=== PATIENT | female | born 1970 | race Caucasian/White ===

== ENCOUNTER 2018-01-14 08:31 | Emergency (ER) | payer OTHER ==
[~2018-01-14] VITALS: Ht 160 cm; Wt 90.0 kg
[~2018-01-14 08:31] MED LIST: ADVAIR DISK1 IN; ADVAIR DISK1 INH; ADVAIR DISK1 PO; ALAVERT1 TAB PO; ALLEGRA-D 1212 HOUR PO; AMOXICILLIN250 M1 PO; AMOXICILLIN875 MG OR; ATROVENT I0.5 MG/VIA IN; AUGMENTIN500TAB PO; AUGMENTIN875TAB OR; AUGMENTIN875TAB PO; AZITHROMYCIN500 MG PO; BENTYL10 MG PO; CALCIUM75 MG PO; CALTRAT1 PO; CIPROFLOXACN500 MG PO; CLARITIN10 M2 PO; CORTISPORIN OP7.5 ML OP; DEPO-MEDROL80 MG/ML IM; DUONEB IN; ESTROVE1 PO; FLONASE NASAL50 MCG; LORATADINE10 M1 PO; LORTAB 5 OR; LOTRISONE EX; LOTRISONE TOP; MEDDOSEPAK PO; NAPROSYN500 MG PO; NASONEX50 MCG/AC; NASONEX50 MCG/AC NAS; NITROFUR MAC100 MG PO; PERCOCET 5/325M1 TAB PO; PRILOSEC20 MG/CAP PO; PROAIR HFA IN; PROVENTIL IN; PROVENTIL0.083 % IN; PYRIDIUM200 MG PO; RANITIDINE150 MG PR; SINGLAIR 4 MG TA4 MG PO; SINGULAIR 10 MG10 MG PO; VIVELLE-DOT0.05 MG TD; WAL-FEX D 1212 HOUR PO; ZOFRAN ODT8 MG SL; ZPAK PO; ZYRTEC-D AL1 OR; ZYRTEC-D ALG OR
[2018-01-14] MEDS ORDERED: BREO ELLIPTA1 INH PO (08:41)
[2018-01-14 09:31] VITALS: BP 134/98
== END 2018-01-14 09:38 | disposition home or self-care (01) | DRG 563 ==
LOC: ED 08:31
DX: S83.411A Sprain of medial collateral ligament of right knee, initial encounter (principal); J45.909 Unspecified asthma, uncomplicated; X50.1XXA Overexertion from prolonged static or awkward postures, initial encounter; Y93.F9 Activity, other caregiving; Y92.230 Patient room in hospital as the place of occurrence of the external cause; Y99.0 Civilian activity done for income or pay

== ENCOUNTER → 2019-02-05 | Outpatient (REF) ==
[~2019-02-05] MED LIST changes: +BREO ELLIPTA1 INH PO
[2019-02-05 10:29] LABS: CHOLESTEROL HDL RATIO 5.4 (<4.4 (CALC))
== END | disposition home or self-care (01) | DRG 951 ==
LOC: LAB 09:09
PROVIDERS: ATTEND Family Medicine
DX: Z02.6 Encounter for examination for insurance purposes (principal)

== ENCOUNTER 2020-12-19 07:34 | Day surgery (SDC) | payer OTHER ==
[~2020-12-19] VITALS: Ht 160 cm; Wt 93.4 kg
[~2020-12-19 07:34] MED LIST changes: +AZELASTINE HYDR1 SPR; +B12 FAST DIS5000 MCG PO; +CALCI23 PO; +CYCLOBENZAPRINE5 MG PO; +D32000 UNIT PO; +METOPROL TAR25 MG PO; +MONTELUKAST SOD10 MG PO; +PAIN RELIEF EX500 M1 PO; +PANTOPRAZOLE SO20 M1 PO; +RED YEAST RICE600 MG PO; +TRAMADOL HYDROC50 M1 PO; +[UNRECOGNIZED DRUG - CODE] PO; +[UNRECOGNIZED DRUG - SUPPLY] IN
[2020-12-19] MEDS ORDERED: TRAMADOL HYDROC50 M1 PO (10:31)
[2020-12-19 10:54] VITALS: BP 104/73
== END 2020-12-19 11:28 | disposition home or self-care (01) | DRG 552 ==
LOC: ORM 07:34
PROVIDERS: ATTEND Anesthesiology Pain Medicine
DX: M54.5 Low back pain (principal); M12.9 Arthropathy, unspecified

== ENCOUNTER 2021-01-09 07:16 | Day surgery (SDC) | payer OTHER ==
[~2021-01-09] VITALS: Ht 160 cm; Wt 91.6 kg
[2021-01-09 09:11] VITALS: BP 96/57
== END 2021-01-09 09:35 | disposition home or self-care (01) | DRG 552 ==
LOC: ORM 07:16
PROVIDERS: ATTEND Anesthesiology Pain Medicine
DX: M54.5 Low back pain (principal); Z01.84 Encounter for antibody response examination

== ENCOUNTER 2021-10-16 06:42 | Day surgery (SDC) | payer OTHER ==
[~2021-10-16 06:42] MED LIST changes: +VITAMIN D PO
[2021-10-16] MEDS ORDERED: OMALIZUMAB 150 MG/ML IJ (07:19)
[2021-10-16 09:29] VITALS: BP 101/57
== END 2021-10-16 10:30 | disposition home or self-care (01) | DRG 552 ==
LOC: ORM 06:42
PROVIDERS: ATTEND Anesthesiology Pain Medicine
DX: M54.59 Other low back pain (principal); M12.9 Arthropathy, unspecified

== ENCOUNTER 2021-10-30 05:57 | Day surgery (SDC) | payer OTHER ==
[~2021-10-30] VITALS: Ht 160 cm; Wt 93.0 kg
[~2021-10-30 05:57] MED LIST changes: +OMALIZUMAB 150 MG/ML IJ
[2021-10-30 09:38] VITALS: BP 114/60
== END 2021-10-30 08:57 | disposition home or self-care (01) | DRG 552 ==
LOC: ORM 05:57
PROVIDERS: ATTEND Anesthesiology Pain Medicine
DX: M54.59 Other low back pain (principal); M12.9 Arthropathy, unspecified; M46.1 Sacroiliitis, not elsewhere classified

== ENCOUNTER 2023-02-11 07:17 | Day surgery (SDC) | payer OTHER ==
[2023-02-11] MEDS ORDERED: METOPROL TAR25 MG PO (07:36)
[2023-02-11 11:34] VITALS: BP 122/79
== END 2023-02-11 09:10 | disposition home or self-care (01) | DRG 552 ==
LOC: ORM 07:17
PROVIDERS: ATTEND Physical Medicine & Rehabilitation
DX: M47.816 Spondylosis without myelopathy or radiculopathy, lumbar region (principal); G89.4 Chronic pain syndrome; M62.830 Muscle spasm of back

== ENCOUNTER 2023-02-25 07:12 | Day surgery (SDC) | payer OTHER ==
[~2023-02-25] VITALS: Ht 160 cm; Wt 93.4 kg
[2023-02-25 11:22] VITALS: BP 118/64
== END 2023-02-25 09:00 | disposition home or self-care (01) | DRG 552 ==
LOC: ORM 07:12
PROVIDERS: ATTEND Physical Medicine & Rehabilitation
DX: M47.816 Spondylosis without myelopathy or radiculopathy, lumbar region (principal); G89.4 Chronic pain syndrome; M62.830 Muscle spasm of back; M51.36 Other intervertebral disc degeneration, lumbar region

== ENCOUNTER 2023-03-11 06:58 | Day surgery (SDC) | payer OTHER ==
[~2023-03-11] VITALS: Ht 160 cm; Wt 94.3 kg
[2023-03-11 10:26] VITALS: BP 103/68
== END 2023-03-11 09:26 | disposition home or self-care (01) | DRG 552 ==
LOC: ORM 06:58
PROVIDERS: ATTEND Physical Medicine & Rehabilitation
DX: M47.816 Spondylosis without myelopathy or radiculopathy, lumbar region (principal); G89.4 Chronic pain syndrome; M62.830 Muscle spasm of back; M51.36 Other intervertebral disc degeneration, lumbar region

== ENCOUNTER 2023-03-25 06:58 | Day surgery (SDC) | payer OTHER ==
[~2023-03-25] VITALS: Ht 160 cm; Wt 95.3 kg
[2023-03-25 10:54] VITALS: BP 122/70
== END 2023-03-25 09:44 | disposition home or self-care (01) | DRG 552 ==
LOC: ORM 06:58
PROVIDERS: ATTEND Physical Medicine & Rehabilitation
DX: M47.816 Spondylosis without myelopathy or radiculopathy, lumbar region (principal); G89.4 Chronic pain syndrome

== ENCOUNTER 2023-04-22 08:37 | Day surgery (SDC) | payer OTHER ==
[~2023-04-22] VITALS: Ht 160 cm; Wt 95.3 kg
[2023-04-22 11:26] VITALS: BP 119/73
== END 2023-04-22 11:00 | disposition home or self-care (01) | DRG 93 ==
LOC: ORM 08:37
DX: G89.4 Chronic pain syndrome (principal); M47.816 Spondylosis without myelopathy or radiculopathy, lumbar region; M62.830 Muscle spasm of back; M51.36 Other intervertebral disc degeneration, lumbar region

== ENCOUNTER 2023-05-20 07:44 | Day surgery (SDC) | payer OTHER ==
[~2023-05-20] VITALS: Ht 160 cm; Wt 95.3 kg
[2023-05-20 10:14] VITALS: BP 113/63
== END 2023-05-20 10:10 | disposition home or self-care (01) | DRG 552 ==
LOC: ORM 07:44
PROVIDERS: ATTEND Physical Medicine & Rehabilitation
DX: M47.816 Spondylosis without myelopathy or radiculopathy, lumbar region (principal); G89.4 Chronic pain syndrome; M62.830 Muscle spasm of back; M51.36 Other intervertebral disc degeneration, lumbar region

== ENCOUNTER 2023-11-04 07:04 | Day surgery (SDC) | payer OTHER ==
[~2023-11-04] VITALS: Ht 160 cm; Wt 99.8 kg
[2023-11-04] MEDS ORDERED: OZEMPIC2 MG IJ (07:26)
[2023-11-04] MEDS ORDERED: TRAMADOL HCL50 MG PO (07:28)
[2023-11-04] MEDS ORDERED: ROBAXIN (07:28)
[2023-11-04 10:07] VITALS: BP 110/63
== END 2023-11-04 09:09 | disposition home or self-care (01) | DRG 558 ==
LOC: ORM 07:04
PROVIDERS: ATTEND Student in an Organized Health Care Education/Training Program
DX: M70.62 Trochanteric bursitis, left hip (principal); M70.61 Trochanteric bursitis, right hip; G89.4 Chronic pain syndrome; M47.816 Spondylosis without myelopathy or radiculopathy, lumbar region; M62.830 Muscle spasm of back; M51.36 Other intervertebral disc degeneration, lumbar region
CPT/HCPCS: Q9967

== ENCOUNTER 2023-12-05 11:15 | Emergency (ER) | payer OTHER ==
[2023-12-05] VITALS (7 sets, daily range): BP systolic 98–116; BP diastolic 52–83
[~2023-12-05] VITALS: Ht 160 cm; Wt 93.0 kg
[~2023-12-05 11:15] MED LIST changes: +OZEMPIC2 MG IJ; +ROBAXIN; +TRAMADOL HCL50 MG PO
[2023-12-05] MEDS ORDERED: AMOX/K CLAV875 M1 PO ×2 (12:37→13:03)
[2023-12-05] MEDS ORDERED: PREDNISONE20 MG PO ×2 (12:37→13:04)
== END 2023-12-05 12:58 | disposition home or self-care (01) | DRG 153 ==
LOC: ED 11:15
DX: J01.90 Acute sinusitis, unspecified (principal); J45.909 Unspecified asthma, uncomplicated; Z20.822 Contact with and (suspected) exposure to COVID-19

== ENCOUNTER 2024-05-18 07:46 | Day surgery (SDC) | payer OTHER ==
[~2024-05-18] VITALS: Ht 157.5 cm; Wt 88.9 kg
[~2024-05-18 07:46] MED LIST changes: +AMOX/K CLAV875 M1 PO; +PREDNISONE20 MG PO
[2024-05-18] MEDS ORDERED: BUPIVACAINE HCL PF 0.5 % 50 MG/10 ML SDV ONE (08:30)
[2024-05-18] MEDS ORDERED: TRIAMCINOLONE ACETONIDE 40 MG/ML ML ONE (08:30)
[2024-05-18] MEDS ORDERED: LIDOCAINE HCL 1% (10MG/ML) 100 MG/10 ML MDV ONE (08:30)
[2024-05-18] MEDS ORDERED: SODIUM CHLORIDE 0.9% 10 ML SYR ONE ×2 (08:31→10:09)
[2024-05-18] MEDS ORDERED: MIDAZOLAM HCL 2 MG/2 ML VIAL ONE (10:09)
[2024-05-18] MEDS ORDERED: Iopamidol 61% 5 ML SYR IV ONE (10:11)
[2024-05-18 10:48] VITALS: BP 116/68
== END 2024-05-18 09:30 | disposition home or self-care (01) | DRG 558 ==
LOC: ORM 07:46
PROVIDERS: ATTEND Student in an Organized Health Care Education/Training Program
DX: M70.61 Trochanteric bursitis, right hip (principal); M70.62 Trochanteric bursitis, left hip; G89.4 Chronic pain syndrome; M25.551 Pain in right hip
CPT/HCPCS: J3301; Q9967

== ENCOUNTER 2024-06-21 12:32 | Emergency (ER) | payer OTHER ==
[~2024-06-21] VITALS: Ht 157.5 cm; Wt 84.0 kg
[2024-06-21] VITALS (12 sets, daily range): BP systolic 88–113; BP diastolic 48–69
[2024-06-21] MEDS ORDERED: cefTRIAXone SODIUM 2 GM in SODIUM CHLORIDE 0.9% 100 ML IV ONE (12:40)
[2024-06-21] MEDS ORDERED: ONDANSETRON HCl 4 MG/2 ML SDV IV ONE (12:40)
[2024-06-21] MEDS ORDERED: SODIUM CHLORIDE 0.9% 1,000 ML IV ONE ×2 (12:40→14:10)
[2024-06-21] MEDS ORDERED: KETOROLAC TROMETHAMINE 30 MG/ML SDV IV ONE (12:40)
[2024-06-21] MEDS ORDERED: MORPHINE SULFATE 4 MG/ML VIAL IV ONE ×2 (13:00→15:20)
[2024-06-21 13:14] LABS: BASO% 0.3 % (0-3); EOS% 0.5 % (0-8); HEMATOCRIT 36.8 % (37.0-47.0); HEMOGLOBIN 12.3 g/dl (12.0-16.0); IMMATURE GRANULOCYTES 0.7 % (0.0-5.0); LYMPH% 14.8 % (15-41); MEAN CELL VOLUME 89.1 fL CALC (80.0-100.0); MEAN CORPUSCULAR HGB 29.8 pG CALC (26.0-32.0); MEAN CORPUSCULAR HGB CONC 33.4 g/dL CAL (32.0-36.0); MONO% 8.3 % (2-13); NEUT# 12.55 thou/uL (2.00-7.15); NEUT% 75.4 % (42-76); RED BLOOD COUNT 4.13 mill/uL (4.20-5.60); RED CELL DISTRI WIDTH 14.2 % (11.5-15.5)
[2024-06-21 13:29] LABS: ALBUMIN 3.5 g/dL (3.2-5.0); BILIRUBIN, TOTAL 0.8 mg/dL (0.02-1.3); CREATININE 0.9 mg/dL (0.5-1.0); POTASSIUM 3.2 mmol/l (3.5-5.1); TOTAL PROTEIN 6.5 g/dL (6.3-8.2)
== END 2024-06-21 15:40 | disposition short-term general hospital (02) | DRG 862 ==
LOC: ED 12:32
PROVIDERS: Family Medicine
DX: T81.41XA Infection following a procedure, superficial incisional surgical site, initial encounter (principal); A41.9 Sepsis, unspecified organism; K04.7 Periapical abscess without sinus; R25.2 Cramp and spasm; E11.9 Type 2 diabetes mellitus without complications; E66.9 Obesity, unspecified; K08.409 Partial loss of teeth, unspecified cause, unspecified class; J45.909 Unspecified asthma, uncomplicated; Y83.6 Removal of other organ (partial) (total) as the cause of abnormal reaction of the patient, or of later complication, without mention of misadventure at the time of the procedure
CPT/HCPCS: Q9967